=== PATIENT | female | born 1990 | race Caucasian/White ===

== ENCOUNTER 2021-05-20 17:51 | Inpatient (IN) ==
[2021-05-20] MEDS ORDERED: Buffered Lidocaine 1% SYRIN 1 ml INTRADERM ONE (19:24)
[2021-05-20] MEDS ORDERED: Lactated Ringers 1000 ml BAG 1,000 ML IV ONE (19:24)
[2021-05-20] MEDS ORDERED: Dinoprostone 10 MG VAG.SUPP VAGINAL ONE (19:24)
[2021-05-20] MEDS ORDERED: Lactated Ringers 1000 ml BAG 1,000 ML IV SCH (20:00)
[2021-05-20 21:25] LABS: Urine Benzodiazepine Screen None Detected (None Detect); Urine Cannabinoids Screen None Detected (None Detect); Urine Opiates Screen None Detected (None Detect)
[2021-05-20 21:43] LABS: ABS Basophils 0.1 10^3/ul (0-0.2); ABS Eosinophils 0.1 10^3/ul (0-0.6); ABS Lymphocytes 2.2 10^3/ul (1.0-4.8); ABS Monocytes 0.7 10^3/ul (0-0.8); ABS Neutrophils 7.4 10^3/ul (1.5-7.7); Eosinophil % 0.6 %; Hematocrit 38 % (35-47); Hemoglobin 13.3 g/dL (12.0-16.0); Lymphocyte % 21.3 %; Mean Corpuscular HGB Conc 35 g/dL (31-36); Mean Corpuscular Hemoglobin 29 pg (27-31); Mean Corpuscular Volume 82 fL (80-97); Mean Platelet Volume 8.4 fL (7.4-10.4); Platelet Count 251 10^3/uL (150-450); Red Blood Count 4.62 10^6 /uL (3.70-4.87); Red Cell Distribution Width 16 % (10-15); White Blood Count 10.5 10^3/uL (3.5-10.8)
[2021-05-21] MEDS ORDERED: Penicillin G Potassium IV 5,000,000 UNITS in NS 0.9% 100 ml BAG 100 ML IVPB ONE (08:36)
[2021-05-21] MEDS ORDERED: Oxytocin in LR 20 UNITS/1,000 ML BAG IVPB SCH (09:00)
[2021-05-21] MEDS ORDERED: OBEPIDURAL 250 ML EPIDURAL ONE (11:09)
[2021-05-21] MEDS ORDERED: fentaNYL 100 mcg/2 ml 50 MCG/ML VIAL ONE (11:11)
[2021-05-21] MEDS ORDERED: Lidocaine 1% VIAL 10 MG/ML VIAL ONE (11:31)
[2021-05-21] MEDS ORDERED: Lidocaine 1% MPF 5 ML VIAL ONE (11:31)
[2021-05-21] MEDS ORDERED: Phenylephrine 40 mcg/mL 10mL (400mcg) SYRINGE IV PUSH PRN ×2 (13:20)
[2021-05-21] MEDS ORDERED: Lactated Ringers 1000 ml BAG 1,000 ML IV ONE (13:20)
[2021-05-21] MEDS ORDERED: EPHEDrine (Pressors) 50 MG/ML VIAL IV PUSH PRN ×2 (13:20)
[2021-05-21] MEDS ORDERED: Sodium Citrate/Citric Acid LIQ 15 ML UDC PO PRN (13:20)
[2021-05-21 13:47] LABS: Urine Appearance Clear; Urine Bilirubin Negative (Negative); Urine Blood Negative (Negative); Urine Color Yellow; Urine Glucose Negative (Negative); Urine Ketones Trace (Negative); Urine Nitrite Negative (Negative); Urine Protein Negative (Negative); Urine Specific Gravity 1.032 (1.002-1.030); Urine Urobilinogen Negative (Negative)
[2021-05-21] MEDS: Penicillin G Potassium IV 3,000,000 UNITS in NS 0.9% 100 ml BAG 100 ML IVPB SCH ×2 (13:51→18:01)
[2021-05-21] MEDS ORDERED: OBEPIDURAL 250 ML EPIDURAL SCH (14:00)
[2021-05-21] MEDS ORDERED: Lactated Ringers 1000 ml BAG 1,000 ML IV SCH ×2 (14:00→20:00)
[2021-05-21] MEDS ORDERED: Witch Hazel PAD JAR ONE (19:31)
[2021-05-21] MEDS ORDERED: Witch Hazel PAD JAR TOPICAL PRN (19:44)
[2021-05-21] MEDS ORDERED: Dibucaine 1% OINT 28.35 GM TUBE PR PRN (19:44)
[2021-05-22 06:40] LABS: ABS Basophils 0.1 10^3/ul (0-0.2); ABS Eosinophils 0.1 10^3/ul (0-0.6); ABS Lymphocytes 2.4 10^3/ul (1.0-4.8); ABS Monocytes 0.8 10^3/ul (0-0.8); Eosinophil % 0.6 %; Hematocrit 35 % (35-47); Hemoglobin 11.4 g/dL (12.0-16.0); Lymphocyte % 19.6 %; Mean Corpuscular HGB Conc 33 g/dL (31-36); Mean Corpuscular Hemoglobin 28 pg (27-31); Mean Corpuscular Volume 85 fL (80-97); Mean Platelet Volume 8.3 fL (7.4-10.4); Nucleated Red Blood Cells % 0.1; Platelet Count 219 10^3/uL (150-450); Red Cell Distribution Width 17 % (10-15); White Blood Count 12.4 10^3/uL (3.5-10.8)
[2021-05-23] MEDS: Penicillin G Potassium IV 3,000,000 UNITS in NS 0.9% 100 ml BAG 100 ML IVPB SCH (07:19)
[2021-05-23 07:39] VITALS: BP 125/83
== END 2021-05-23 15:00 | disposition home or self-care (01) | DRG 560 ==
LOC: MCHOBOUT 17:51 → MCHOB 18:15
PROVIDERS: ADMIT Midwife; ATTEND Midwife